=== PATIENT | female | born 1980 | race Hispanic/Latino ===

== ENCOUNTER 2019-06-14 12:47 | Emergency (ER) | payer SELFPAY ==
[~2019-06-14] VITALS: Ht 170.2 cm; Wt 90.0 kg
[2019-06-14] MEDS ORDERED: AMOXICILLIN500 MG PO (13:52)
[2019-06-14] MEDS ORDERED: CORTISPORIN OTI10 M2 AU (13:52)
[2019-06-14] MEDS ORDERED: TORADOL PO (13:52)
[2019-06-14 13:55] VITALS: BP 112/65
== END 2019-06-14 13:55 | disposition home or self-care (01) | DRG 153 ==
LOC: ED 12:47
DX: H66.91 Otitis media, unspecified, right ear (principal); H60.91 Unspecified otitis externa, right ear; H92.01 Otalgia, right ear